=== PATIENT | male | born 2005 | race Caucasian/White ===

== ENCOUNTER 2025-09-28 10:08 | Outpatient (REF) | payer MEDICARE, SELFPAY ==
--- OUTSIDE RECORDS SUMMARY | 2025-09-28 09:00 | XMS_ITS | Encounter Summary ---
Author Organization [employer] Address [address] [place] [address] [address] [place] [address] Care Team Providers Care Asphalt Roller Person Name Role Phone Fior Gaytan Primary Care Provider [phone] Reason for Referral * Consultation (Routine) - Authorized Specialty Diagnoses / Procedures Referred By Lucia duron Referred To Contact Behavioral Health Diagnoses Attention deficit disorder with hyperactivity Anxiety Procedures Referral to Behavioral Health Fior Gaytan FNP [address] [place] [address] Phone: tel: fax: Referral ID Status Reason Start Date Expiration Date Visits Requested Visits Authorized [id number] Authorized Specialty Services Required 5 09/28/2026 1 1 Reason for Visit * Reason Comments Establish Care ADHD Autism dry hands Encounter Details Date Type Department Care Team (Latest Contact Info) Description 09/28/2025 9:00 AM EST Office Visit [facility] [address] [place] [address] Fior Gaytan FNP [address] [place] [address] Attention deficit disorder with hyperactivity (Primary Dx); Anxiety; Encounter for immunization; Healthcare maintenance; Encounter for screening for infections with a predominantly sexual mode of transmission Social History Tobacco Use Types Packs/Day Years Used Date Smoking Tobacco: Never Smokeless Tobacco: Never Tobacco Cessation:Counseling Given: Not Answered Alcohol Answer Date Recorded How often do you have a drink containing alcohol ? 0 09/28/2025 Average Number of Drinks Not on file 025 How often do you have six or more drinks on one occasion? 0 09/28/2025 Depression Answer Date Recorded Patient Health Questionnaire-9 Score 13 09/28/2025 Patient Health Questionnaire-9 Score 13 09/28/2025 Last PHQ-9: Questionnaire Data Not on file 1 11/28/2024 Housing Stability Answer Date Recorded What is your housing situation today? I have erik strong 09/28/[address] you li ve. Do you have problems with any of the following? None of the above 09/28/2025 Food Insecurity Answer Date Recorded Within the past 12 months, y ou worried that your food would run out before you got money to buy more: Never True 09/28/2025 Within the past 12 months,th e food you bought just didn't last and you didn't have enough money to get more: Never True Transportation Answer Date Recorded In the past 12 months, has l ack of transportation kept you from medical appts, meetings, work or from getting things needed for daily living? No 09/28/2025 Utilities Answer Date Recorded In the past 12 months, has t he electric, gas, oil or water company threatened to shut off services in your home? No 09/28/2025 Depression Answer Date Recorded Patient Health Questionnaire-2 Score 4 09/28/2025 Internet Access Answer Date Recorded Internet Access Q1 Yes 09/28/2025 Internet Access Q2 Not on file 09/28/2025 Sex and Gender Information Value Date Recorded Sex Assigned at Male 09/07/2022 10:35 AM EDT Legal Sex Male 10:35 AM EDT Gender Identity Male 09/07/2022 10:35 AM EDT Sexual Orientation Don't know 09/07/2022 10 :35 AM EDT documented as of this encounter Last Filed Vital Signs Vital Sign Reading Time Taken Comments Blood Pressure 126/77 09/28/2025 9:01 AM EST Pulse 79 09/28/2025 9:01 AM EST Temperature 36.5 C (97.7 F) 09/28/2025 9:01 AM EST Respiratory Rate 18 09/28/2025 9:01 AM EST Oxygen Saturation - - Inhaled Oxygen Concentration - - Weight 81.2 kg (179 lb) 09/28/2025 9:01 AM EST Height 170.2 cm (5' 7 ) 09/28/2025 9:01 AM EST Body Mass Index 28.04 09/28/2025 9:01 AM EST documented in this encounter Functional Status * Over the past 2 weeks, how often have you been bothered by any of the following problems? Question Answer Date of Assessment Author Patient Health Questionnaire -2 Score 4 09/28/2025 9:22 AM Abril Butler MA * Little interest or pleasure in doing things Answer Date of Assessment Author More than half the days 09/28/2025 9:22 AM Abril La MA * Feeling down, depressed, or hopeless Answer Date of Assessment Author More than half the days 09/28/2025 9:22 AM Abril La MA * Trouble falling or staying asleep, or sleeping too much Answer Date of Assessment Author Several days 09/28/2025 9:22 AM Fanny Butler MA * Feeling tired or having little energy Answer Date of Assessment Author More than half the days 09/28/2025 9:22 AM Abril La MA * Poor appetite or overeating Answer Date of Assessment Author Not at all 09/28/2025 9:22 AM Fanny Butler MA * Feeling bad about yourself - or that you are a failure or have let yourself or your family down Answer Date of Assessment Author Several days 09/28/2025 9:22 AM Fanny Butler MA * Trouble concentrating on things, such as reading the newspaper or watching television Answer Date of Assessment Author Nearly every day 09/28/2025 9:22 AM Leonardo Butler MA * Moving or speaking so slowly that other people could have noticed? Or the opposite - being so fidgety or restless that you have been moving around a lot more than usual. Answer Date of Assessment Author More than half the days 09/28/2025 9:22 AM Abril La MA * Thoughts that you would be better off or hurting yourself in some way Answer Date of Assessment Author Not at all 09/28/2025 9:22 AM Fanny Butler MA * Patient Health Questionnaire-9 Score Answer Date of Assessment Author 13 09/28/2025 9:22 AM Fanny Butler MA * Over the last 2 weeks, how often have you been bothered by any of the following problems? Question Answer Date of Assessment Author Feeling nervous, anxious, or on edge 2 09/28/2025 9:22 AM Abril Butler MA Not being able to stop or co ntrol worrying 1 09/28/2025 9:22 AM Abril Butler MA Worrying too much about diff erent things 1 09/28/2025 9:22 AM Abril Butler MA Trouble relaxing 2 09/28/2025 9:22 AM Abril La MA Being so restless that it is hard to sit still 1 09/28/2025 9:22 AM Abril Butler MA Becoming easily annoyed or irritable 3 09/28/2025 9:22 AM Abril Butler MA Feeling afraid as if somethi ng awful might happen 1 09/28/2025 9:22 AM Abril Butler MA ALPHONSO-7 Total Score 11 09/28/2025 9:22 AM Abril Butler MA * How difficult have these problems made it for you to do your work, take care of things at home, or get along with other people? Answer Date of Assessment Author Very difficult 09/28/2025 9:22 AM Fanny Butler MA documented as of this encounter Plan of Treatment Scheduled Orders Name Type Priority Associated Diagnoses Orde r Schedule Ferritin Lab Routine Healthcare maintenance Expected: 09/28/2025, Expires: 09/28/2026 Lipid Panel, Standard Lab Routine Healthcare maintenance Expected: 09/28/2025 (Approximate), Expires: 09/28/2026 Hemoglobin A1c Lab Routine Healthcare maintenance Expected: 09/28/2025 (Approximate), Expires: 09/28/2026 TSH with Reflex to Free T4 Lab Routine Healthcare maintenance Expected: 09/28/2025 (Approximate), Expires: 09/28/2026 Comprehensive Metabolic Panel Lab Routine Healthcare maintenance Expected: 09/28/2025 (Approximate), Expires: 09/28/2026 CBC auto differential Lab Routine Healthcare maintenance Expected: 09/28/2025, Expires: 09/28/2026 Iron And Total Iron Binding Capacity Lab Routine Healthcare maintenance Expected: 09/28/2025, Expires: 09/28/2026 Hepatitis C Viral RNA, Quantitative, Real-Time PCR Lab Routine Healthcare maintenance Expected: 09/28/2025 (Approximate), Expires: 09/28/2026 RPR (Monitor) with Reflex to Titer Lab Routine Healthcare maintenance Encounter for screening for infections with a predominantly sexual mode of transmission Expected: 09/28/2025 (Approximate), Expires: 09/28/2026 HIV-1/2 Antigen and Antibodies, Fourth Generation, with Reflexes Lab Routine Healthcare maintenance Expected: 09/28/2025 (Approximate), Expires: 09/28/2026 Chlamydia/Trichomonas/Neis seria gonorrhoeae, PCR, Urine Lab Routine Healthcare maintenance Expected: 09/28/2025 (Approximate), Expires: 09/28/2026 documented as of this encounter Visit Diagnoses Diagnosis Attention deficit disorder with hyperactivity- Primary Anxiety Anxiety state, unspecified Encounter for immunization Healthcare maintenance Encounter for screening for infections with a predominantly sexual mode of transmission documented in this encounter Additional Health Concerns Assessment Noted Time PHQ-9 Depression Total Score: 13 025 9:22 AM EST documented as of this encounter Care Teams Asphalt Roller Person Relationship Specialty Start Date End Date Fior Gaytan FNP [address] [place] [id number] PCP - General Family Medicine 09/28/25 documented as of this encounter
--- OUTSIDE RECORDS SUMMARY | 2025-09-28 10:50 | XMS_ITS | Clinical Summary ---
Author Organization [facility] Address [address] [place] [address] Phone Care Team Providers Care Intertype Operator Name Role Phone Mohit Platt MD Primary Care Provider [phone] Allergies Active Allergy Reactions Criticality Noted Date Comments Environmental 07/25/2018 Pollen Medications loratadine 10 MG tabletIndications :Acute seasonal allergic rhinitis due to pollen Take 1 tablet (10 mg total) by mouth once daily. 90 tablet 1 05/09/20 25 Active fluticasone 50 MCG/ACT nasal sprayIndications: Acute seasonal allergic rhinitis due to pollen Administer 1 spray into each nostril daily. 32 mL 3 05/09/20 25 Active sertraline 25 MG tabletIndications :Anxiety Take 1.5 tablets (37.5 mg total) by mouth daily. 45 tablet 3 06/13/20 25 Active Methylphenidate HCl ER, XR, 20 MG capsule sustained-release 24 hrIndications:Att ention deficit hyperactivity disorder (ADHD), combined type Take 1 capsule by mouth daily. 30 capsule 06/21/20 25 Active methylphenidate ER 20 MG ER tabletIndications :Attention deficit hyperactivity disorder (ADHD), combined type Take 1 tablet (20 mg total) by mouth every morning. 30 tablet 09/17/20 25 025 Active methylphenidate ER 20 MG ER tabletIndications :Attention deficit hyperactivity disorder (ADHD), combined type Take 1 tablet (20 mg total) by mouth every morning. 30 tablet 08/14/20 25 025 Discontin ued(Reord er) Active Problems Problem Noted Date Diagnosed Date Bite, insect 03/05/2025 Assessment & Plan (03/05/2025 3:26 PM EDT): These do look like some insect bites (scratching and scabbed), at the end he says it is itchy. I suggest to examine dad's house/dad's spare bed for fleas (had them before). Gave script for topical antibiotics. Will f/u prn. Anxiety 11/09/2024 Assessment & Plan (12/14/2024 9:57 AM EST): Will continue with sertraline, it seems to be working well. Still with conflicts at home. Reassurance and discussed possible therapy. Assessment & Plan (11/09/2024 10:19 AM EST): Discussed anxiety and depression. Having a lot of emotional outbursts and aggression. We will start him on sertraline/zoloft and see him back in a month. Muscle fatigue 04/14/2024 Assessment & Plan (04/14/2024 9:12 AM EDT): His exam is benign. I think this is from working out. He just needs fluids and rest. Work note given today. Intellectual disability 10/10/2018 Overview (10/10/2018): Full IQ 67 tested at 03/16/2011 Assessment & Plan (07/08/2022 4:30 PM EDT): Going to do the [employer] program till . Now new concerns. Doing well. F/u at [facility] 10/2022. Raynaud's phenomenon without gangrene 06/17/2018 Assessment & Plan (06/17/2018 5:47 PM EDT): History consistent with Raynaud's phenomenon. Discussed what this is. Return if episodes have pain or other symptom that goes along with them. Flat foot 05/25/2016 Overview (06/17/2018): Flat foot (734) Onset: 05/25/2016 Added by: Mohit Platt Assessment & Plan (04/26/2023 3:24 PM EDT): Need new scripts Attention deficit disorder with hyperactivity Overview (06/17/2018): Attention deficit hyperactivity disorder (314.01) Onset: 09/21/2011 Added by: Jacquelin Aggarwal Assessment & Plan (12/14/2024 9:58 AM EST): The switch to concerta is working well. Will continue with this. F/u in 6 months. Assessment & Plan (05/16/2024 4:41 PM EDT): Doing well with focalin 40 xr Will continue at this dose F/u at his [facility] in November Resolved Problems Problem Noted Date Diagnosed Date Resolved Date Viral gastroenteritis 12/15/20222023 Assessment & Plan (12/15/2022 12:38 PM EST): Exam is reassuring. No red flags. Consistent with viral gastroenteritis. Educated on supportive care. Follow up if symptoms persist or worsen. Gastroenteritis; Once your child has stopped getting sick for at least one hour, it is OK to start encouraging drinking slowly. Begin oral fluid replacement with a glucose and electrolyte containing solution. If you child is less than 1 year old, use Pedialyte. If your child is older than 1 year sports drinks such as Gatorade and Powerade can be used. If your child is having a lot of diarrhea sugar-free sports drinks, such as Powerade Zero, should be used instead (as things high in sugar can prolong diarrhea). Jello, popsicles and soup are other ways to replace fluid loss. Advance diet to solid foods slowly as tolerated. Stick to bland foods at first, such as plain crackers like saltines, rice or plain toast for best results. Avoid foods high in sugar if lots of diarrhea as it can make it worse. Refrain from too many fruits or vegetables (except bananas) until symptoms improve. Please call back for persistent fevers 101 or greater, increased abdominal pain, worsening vomiting/diarrhea, less than 4 wet diapers or urination daily, or for any other concern. Acute URI 12/08/2022 04/14/2024 Assessment & Plan (12/08/2022 9:38 AM EST): Exam is reassuring. No red flags. Consistent with viral URI. Continue supportive care. Call office for re-eval if symptoms persist or worsen. Influenza A 11/23/2022 04/14/2024 Encounters Date Type Department Care Team Description 09/14/2025 Refill [facility] [address] [place] [address] [place] [address] Mohit Platt MD Attention deficit hyperactivity disorder (ADHD), combined type 08/14/2025 Refill [facility] [address] [place] [address] [place] [address] Mohit Platt MD Attention deficit hyperactivity disorder (ADHD), combined type 07/13/2025 Refill [facility] [address] [place] [address] [place] [address] Mohit Paltt MD Acute seasonal allergic rhinitis due to pollen; Attention deficit hyperactivity disorder (ADHD), combined type from Last 3 Months Immunizations Immunization Administration Dates Next Due COVID-19 Pfizer, monovalent, 12+ years 1 DTaP 5 05/22/2008, 5,2003,10/02,2003 H1N1 Inj Preservative Free 12/05/2009,11/06/2009 HPV Vaccine 9 Valent 08/26/2017,08/10/2016 Hep A, ped/adol 10/13/2019,10/10/2018 Hep B, ped/adol 08/27/2004,2003,2003 Hib (PRP-T) 09/30/2005, 4,2003,08/03 IPV 05/22/2008, 5,2003,08/03 Influenza, injectable, quadr ivalent, preservative free 11/05/2023,07/08/2022,08/09/2021,07/11,08/05/2019,08/31/2018,08/12/2017 ,08/10/2016,07/25/2015 Influenza, injectable, trivalent 013,07/08/2012,06/25/2010,11/06,10/15/2008,09/26/2008 Influenza, injectable, triva lent, preservative free 11/09/2024,08/07/2014,06/25/2011 MMR 05/22/2008,05/26/2004 Meningococcal Conj (Menactra) MCV4P 10/13/2019,0 08/07/2014 Pneumococcal Conjugate 09/30/2005,2003,2003,08/03 Tdap 11/09/2024,08/07/2014 Varicella 05/22/2008,05/26/2004 Family History Medical History Relation Name Comments Diabetes Mother dulce kam Relation Name Status Comments Brother Elder Alive Father shabbir Alive Mother dulce kam Alive Social History Tobacco Use Types Packs/Day Years Used Date Smoking Tobacco: Never Smokeless Tobacco: Never Comments:Never Smoker Alcohol Use Standard Drinks/Week Comments Never 0 (1 standard drink = 0.6 oz pur e alcohol) Hunger/Food Answer Date Recorded In the last 12 months, did y ou or your family ever eat less than you felt you should because there wasn't enough money for food? No 11/07/2024 Stable Housing Answer Date Recorded Are you worried that in the next 2 months you may not have stable housing? No 11/07/2024 Transportation Concerns Answer Date Rec orded In the last 12 months, have you or your family ever had to go without healthcare because you didn't have a way to get there? No 11/07/2024 Hazards in Home Answer Date Recorded Think about the place you li ve. Do you have problems with any of the following? Pests (mice or roaches), mold, no/not working smoke detectors, water leaks, no window guards. No 2023 Financing Utilities Answer Date Recorde d In the last 12 months, has t he electric, gas, oil, or water company threatened to shut off your services in your home? No 11/07/2024 Safety at Home Answer Date Recorded Are you or your family worried about feeling saf e in your home? No 11/07/2024 Outside Support Answer Date Recorded Do you feel that you need mo re support from other people or programs to help you care for yourself or your family? Yes 11/07/2024 Understanding Health Concerns Answer Da te Recorded Do you need help understandi ng your or your child's healthcare needs (diagnosis, medications, plan, etc.)? No 11/07/2024 Financing Health Concerns Answer Date R ecorded In the last 12 months, was t here a time when your child needed to see a doctor or get medications or supplies but could not because of cost? No 11/07/2024 Missing School or Work Answer Date Aric rded Did you or your child miss s chool or work because of a health problem that could have been avoided? No 11/07/2024 Child Education Answer Date Recorded Do you have concerns about y our/your child's learning or behavior in school, preschool, or daycare? No 11/07/2024 Sex and Gender Information Value Date Recorded Sex Assigned at Not on file Legal Sex Male 6:31 PM EDT Gender Identity Not on file Sexual Orientation Not on file Last Filed Vital Signs Vital Sign Reading Time Taken Comments Blood Pressure 120/80 03/05/2025 2:59 PM EDT Pulse 84 11/05/2023 3:29 PM EST Temperature 36.6 C (97.8 F) 03/05/2025 2:59 PM EDT Respiratory Rate - - Oxygen Saturation - - Inhaled Oxygen Concentration - - Weight 87.8 kg (193 lb 9.6 oz) 03/05/2025 2:59 P M EDT Height 172 cm (5' 7.72 ) 11/09/2024 9:53 AM EST Body Mass Index 29.68 11/09/2024 9:53 AM EST Plan of Treatment Health Maintenance Due Date Last Done Comments Men B Vaccine (1 of 2 - Standard) 2019 Influenza Vaccines (#1) 2025 11/09/19, 11/05/2023, 07/08/2022, Additional history exists COVID-19 Vaccine ( - 2024-2 6 season) 2025 10/20/2021, 03/22/2021, 02/28/2021 DTaP,Tdap,and Td Vaccines (8 - Td or Tdap) 11/09/2034 11/09/2024, 08/07/2014, 05/22/2008, Additional history exists Hepatitis B Vaccines Completed 08/27/2004, 2003, 2003 HIB Vaccines Completed 09/30/2005, 11/09, 2003, Additional history exists Pneumococcal Vaccine Completed 09/30/2005, 2003, 2003, Additional history exists IPV Vaccines Completed 05/22/2008, 09/09, 2003, Additional history exists MMR Vaccines Completed 05/22/2008, 05/26/2004 Varicella Vaccines Completed 05/22/2008, 05/26/2004 HPV Vaccines Completed 08/26/2017, 08/10/2016 Hepatitis A Vaccines Completed 10/13/2019, 10/10/20 18 Meningococcal Vaccine Completed 10/13/2019, 014 Goals Goal Patient Goal Type Associated Problems Recent Progress Patient-Stated? Author Follow provider treatment plan General Louis Mendoza MD Note: Images from the original note were not included. Set regular routines for your day. Avoid overscheduling activities. Take the anxiety medication as directed. Fear Thermometer Click here to see the guide on fear thermometer for children with anxiety (https://One Month.[employer].org/One Month/Documents/SecureContent?filename=Guided Self-Management\Anxiety Guide child\3. Anxiety Guide Child - Fear Thermometer.pdf) Deep Breathing Click here to see the guide on deep breathing for children with anxiety (https://One Month.[employer].org/[employer]/Documents/SecureContent?filename=Guided Self-Management\Anxiety Guide child\4. Anxiety Guide Child - Deep Breathing.pdf) Anxiety Disorder: Care Instructions Your Care Instructions Anxiety is a normal reaction to stress. Difficult situations can cause you to have symptoms such as sweaty palms and a nervous feeling. In an anxiety disorder, the symptoms are far more severe. Constant worry, muscle tension, trouble sleeping, nausea and diarrhea, and other symptoms can make normal daily activities difficult or impossible. These symptoms may occur for no reason, and they can affect your work, school, or social life. Medicines, counseling, and self-care can all help. Follow-up care is a shi part of your treatment and safety. Be sure to make and go to all appointments, and call your doctor if you are having problems. It's also a good idea to know your test results and keep a list of the medicines you take. How can you care for yourself at home? Take medicines exactly as directed. Call your doctor if you think you are having a problem with your medicine. Go to your counseling sessions and follow-up appointments. Recognize and accept your anxiety. Then, when you are in a situation that makes you anxious, say to yourself, This is not an emergency. I feel uncomfortable, but I am not in danger. I can keep going even if I feel anxious. Be kind to your body: Relieve tension with exercise or a massage. Get enough rest. Avoid alcohol, caffeine, nicotine, and illegal drugs. They can increase your anxiety level and cause sleep problems. Learn and do relaxation techniques. See below for more about these techniques. Engage your mind. Get out and do something you enjoy. Go to a [employer] movie, or take a walk or hike. Plan your day. Having too much or too little to do can make you anxious. Keep a record of your symptoms. Discuss your fears with a good friend or family member, or join a support group for people with similar problems. Talking to others sometimes relieves stress. Get involved in social groups, or volunteer to help others. Being alone sometimes makes things seem worse than they are. Get at least 30 minutes of exercise on most days of the week to relieve stress. Walking is a good choice. You also may want to do other activities, such as running, swimming, cycling, or playing tennis or team sports. Relaxation techniques Do relaxation exercises 10 to 20 minutes a day. You can play soothing, relaxing music while you do them, if you wish. Tell others in your house that you are going to do your relaxation exercises. Ask them not to disturb you. Find a comfortable place, away from all distractions and noise. Lie down on your back, or sit with your back straight. Focus on your breathing. Make it slow and steady. Breathe in through your nose. Breathe out through either your nose or mouth. Breathe deeply, filling up the area between your navel and your rib cage. Breathe so that your belly goes up and down. Do not hold your breath. Breathe like this for 5 to 10 minutes. Notice the feeling of calmness throughout your whole body. As you continue to breathe slowly and deeply, relax by doing the following for another 5 to 10 minutes: Tighten and relax each muscle group in your body. You can begin at your toes and work your way up to your head. Imagine your muscle groups relaxing and becoming heavy. Empty your mind of all thoughts. Let yourself relax more and more deeply. Become aware of the state of calmness that surrounds you. When your relaxation time is over, you can bring yourself back to alertness by moving your fingers and toes and then your hands and feet and then stretching and moving your entire body. Sometimes people fall asleep during relaxation, but they usually wake up shortly afterward. Always give yourself time to return to full alertness before you drive a car or do anything that might cause an accident if you are not fully alert. Never play a relaxation tape while you drive a car. When should you call for help? Call 911 anytime you think you may need emergency care. For example, call if: You feel you cannot stop from hurting yourself or someone else. Keep the numbers for these national suicide hotlines: 0-455-341-TALK ( ) and 3-698-XXBKAOX ( ). If you or someone you know talks about suicide or feeling hopeless, get help right away. Watch closely for changes in your health, and be sure to contact your doctor if: You have anxiety or fear that affects your life. You have symptoms of anxiety that are new or different from those you had before. Where can you learn more? Go to https://www.Twitch.net/patientEd Enter P754 in the search box to learn more about Anxiety Disorder: Care Instructions. Current as of: April 23, 2021 Content Version: 13.0 [employer]. Care instructions adapted under license by your healthcare professional. If you have questions about a medical condition or this instruction, always ask your healthcare professional. [employer] disclaims any warranty or liability for your use of this information. Patient/Parent would like to manage anxiety better Care Plan Patient is having increased feelings of anxiety Louis Mendoza MD Note: Patient would like to get through the day without emotional outbursts. Additional Health Concerns Active Problems Noted Date Diagnosed Date Patient/family needs help romario naging the patient s chronic conditions 06/18/2021 Patient/caregiver is having difficulty managing multiple needs 06/18/2021 Patient is having increased feelings of anxiety 11/12/2024 Care Teams Intertype Operator Relationship Specialty Start Date End Date Mohit Platt MD [facility] [place] [address] PCP - General Pediatrics 06/22/25
--- OUTSIDE RECORDS SUMMARY | 2025-09-28 10:50 | XMS_ITS | Encounter Summary ---
Author Organization [facility] Address [address] [place] [address] Phone Care Team Providers Care Water Filterer Name Role Phone Mohit Platt MD Primary Care Provider [phone] Reason for Visit * Reason Onset Date Comments Med Refill 10/20/2024 Encounter Details Date Type Department Care Team ([facility] Contact Info) Description 10/20/2024 Refill [facility] [address] [place] [address] [place] [address] Jac[address]elin [address] [place] [address] Social History Tobacco Use Types Packs/Day Years [...] there wasn't enough money for food? No 11/05/2023 Stable Housing Answer Date Recorded Are you worried that in the next 2 months you may not have stable housing? No 11/05/2023 Transportation Concerns Answer Date Rec orded In the last 12 months, have you or your family ever had to go without healthcare because you didn't have a way to get there? Yes 11/05/2023 Hazards in Home Answer Date Recorded Think about the place you li ve. Do you have problems with any of the following? Pests (mice or roaches), mold, no/not working smoke detectors, water leaks, no window guards. No 2022 Financing Utilities Answer Date Recorde d In the last 12 months, has t he electric, gas, oil, or water company threatened to shut off your services in your home? No 11/05/2023 Safety at Home Answer Date Recorded Are you or your family worried about feeling saf e in your home? No 11/05/2023 Outside Support Answer Date Recorded Do you feel that you need mo re support from other people or programs to help you care for yourself or your family? Yes 11/05/2023 Understanding Health Concerns Answer Da te Recorded Do you need help understandi ng your or your child's healthcare needs (diagnosis, medications, plan, etc.)? No 11/05/2023 Financing Health Concerns Answer Date R ecorded In the last 12 months, was t here a time when your child needed to see a doctor or get medications or supplies but could not because of cost? No 11/05/2023 Missing School or Work Answer Date Aric rded Did you or your child miss s chool or work because of a health problem that could have been avoided? No 11/05/2023 Sex and Gender Information Value Date Recorded Sex Assigned at Not on file Legal Sex Male 6:31 PM EDT Gender Identity Not on file Sexual Orientation Not on file documented as of this encounter Plan of Treatment Not on file documented as of this encounter Visit Diagnoses Not on filedocumented in this encounter Additional Health Concerns Active Problems Noted Date Diagnosed Date Patient/family needs help ma naging the patient s chronic conditions 06/18/2021 Patient/caregiver is having difficulty managing multiple needs 06/18/2021 documented as of this encounter Care Teams Water Filterer Relationship Specialty Start Date End Date Mohit Platt MD [facility] [facility] [place] [address] PCP - General Pediatrics 06/22/25 documented as of this encounter
--- OUTSIDE RECORDS SUMMARY | 2025-09-28 10:50 | XMS_ITS | Encounter Summary ---
Author Organization [employer] Address [address] [facility] [address] [place] [address] Care Team Providers Care Drug Room Clerk Name Role Phone Fior Gaytan Primary Care Provider [phone] Encounter Details Date Type Department Care Team (Latest Contact Info) Description 01/04/2019 Abstract [facility] CONVERSIONS Dental, Provider, DDS Social History Tobacco Use Types Packs/Day Years Used Date Smoking Tobacco: Never Assessed Sex and Gender Information Value Date Recorded Sex Assigned at Male 09/07/2022 10:35 AM EDT Legal Sex Male 10:35 AM EDT Gender Identity Male 09/07/2022 10:35 AM EDT Sexual Orientation Don't know 09/07/2022 10 :35 AM EDT documented as of this encounter Plan of Treatment Not on file documented as of this encounter Visit Diagnoses Not on filedocumented in this encounter Care Teams Drug Room Clerk Relationship Specialty Start Date End Date Fior Gaytan FNP [address] [place] [address] PCP - General Family Medicine 09/28/25 documented as of this encounter
--- OUTSIDE RECORDS SUMMARY | 2025-09-28 10:50 | XMS_ITS | Encounter Summary ---
Author Organization [facility] Address [address] [place] [address] Phone Care Team Providers Care Test Deskman Name Role Phone Mohit Platt MD Primary Care Provider [phone] Encounter Details Date Type Department Care Team (Late st Contact Info) Description 04/17/2011 Conversion Encounter [facility] [address] [place] [address] [place] [address] Social History Tobacco Use Types Packs/Day Years [...] on filedocumented in this encounter Care Teams Test Deskman Relationship Specialty Start Date End Date Mohit Platt MD [address] [facility] [place] [address] PCP - General Pediatrics 06/22/25 documented as of this encounter
--- OUTSIDE RECORDS SUMMARY | 2025-09-28 10:50 | XMS_ITS ---
Care Plan Created on: September 28, 2025 Prasanth Greer : 2005 Sex: Male Author Organization [facility] Address [address] [place] [id number] Phone Care Team Providers Care Central Office Mechanic Name Role Phone Mohit Platt MD Primary Care Provider [phone] Active Problems Problem Noted Date Diagnosed Date [...] 4:30 PM EDT): Going to do the [employer] program till 22. Now new concerns. Doing well. F/u at [facility] 10/2022. Raynaud's phenomenon without gangrene 06/17/2018 Assessment [...] persist or worsen. Influenza A 11/23/2022 04/14/2024 Additional Health Concerns Active Problems Noted Date Diagnosed Date Patient/family needs help ma naging the patient s chronic conditions 06/18/2021 Patient/caregiver is having difficulty managing multiple needs 06/18/2021 Patient is having increased feelings of anxiety 11/12/2024 Goals Goal Patient Goal Type Associated Problems Recent Progress Patient-Stated? Author Follow provider treatment plan General No Louis Escalona MD Note: Images from the original note were not included. Set regular routines for your day. Avoid overscheduling activities. Take the anxiety medication as directed. Fear Thermometer Click here to see the guide on fear thermometer for children with anxiety (https://LoiLohart.NOWBOX.org/LoiLohart/Documents/SecureContent?filename=Guided Self-Management\Anxiety Guide child\3. Anxiety Guide Child - Fear Thermometer.pdf) Deep Breathing Click here to see the guide on deep breathing for children with anxiety (https://Neverfailt.NOWBOX.org/Neverfailt/Documents/SecureContent?filename=Guided Self-Management\Anxiety Guide child\4. Anxiety Guide Child - [...] do something you enjoy. Go to a funny movie, or take a walk or hike. [...] the numbers for these national suicide hotlines: 1-533-432-TALK ( ) and 8-156-DQUQWJI ( ). If you or someone you [...] Where can you learn more? Go to https://www.GOSO.net/patientEd Enter P754 in the search box to learn more about Anxiety Disorder: Care Instructions. Current as of: April 23, 2021 Content Version: 13.0 [employer]. Care instructions adapted under license by your healthcare professional. If you have questions about a medical condition or this instruction, always ask your healthcare professional. [employer] disclaims any warranty or liability for your use of this information. Patient/Parent would like to manage anxiety better Care Plan Patient is having increased feelings of anxiety Louis Mendoza MD Note: Patient would like to get through the day without emotional outbursts. Interventions Care Plan Interventions Intervention Entry Date Outcome Educate patient/caregiver 11/12/2024 Note:[id number] provider discussed the anxiety diagnosis and management in office. It can take a number of weeks for a new dose of this medication to make a noticeable change in anxiety. Related Goals and Interventions Goal Associated Intervent ions Patient/Parent would like to manage anxi ety better Educate patient/caregiver
--- OUTSIDE RECORDS SUMMARY | 2025-09-28 10:50 | XMS_ITS | Encounter Summary ---
Author Organization [employer] Address [address] [facility] [address] [place] [address] Care Team Providers Care General Ophthalmologist Name Role Phone Fior Gaytan CRISTIAN Primary Care Provider [phone] Encounter Details Date Type Department Care Team (Latest Contact Info) Description 09/28/2025 Travel Social History Tobacco Use Types Packs/Day Years Used Date Smoking Tobacco: Never Smokeless Tobacco: Never Alcohol Answer Date Recorded How often do [...] your housing situation today? I have erik ligia 09/28/[address] you li [...] AM EDT documented as of this encounter Functional Status * Over the [...] filedocumented in this encounter Additional Health Concerns Assessment Noted Time PHQ-9 Depression Total Score: 13 025 9:22 AM EST documented as of this encounter Care Teams General Ophthalmologist Relationship Specialty Start Date End Date Fior Gaytan FNP [address] [place] [address] PCP - General Family Medicine 09/28/25 documented as of this encounter
--- OUTSIDE RECORDS SUMMARY | 2025-09-28 10:51 | XMS_ITS | Clinical Summary ---
Author Organization [employer] Address [address] [place] [address] [address] [place] [address] Care Team Providers Care Commercial Kitchen Service Technician Name Role Phone Fior Gaytan CRISTIAN Primary Care Provider [phone] Allergies Active Allergy Reactions Criticality Noted Date Comments Other 07/25/2018 Pollen Medications loratadine (Claritin) 10 MG tablet Take 1 tablet by mouth Once per day. Active Methylphenidate HCl (methylphenidate ER) 36 MG 24 hr tabletIndication s:Attention deficit disorder with hyperactivity Take 1 tablet (36 mg) by mouth Once per day. Do not crush, chew, or split. 30 tablet 025 2024 Active triamcinolone (Kenalog) 0.1 % cream Mix 80g tube of Triamcinolone 0.1% cream with 16oz jar of CeraVe cream. Apply 1-2 times per day after shower or bath from the neck down (not on face) 80 g 1 09/28/20 25 10:46 AM EST 025 Active sertraline (Zoloft) 50 MG tablet Take 1 tablet (50 mg) by mouth Once per day. 90 tablet 09/28/20 25 10:46 AM EST 025 2025 Active fluticasone (Flonase) 50 MCG/ACT nasal spray Administer 1 spray into each nostril if needed each day for rhinitis or allergies. Shake gently. Before first use, prime pump. After use, clean tip and replace cap. 16 g 1 025 Active fluticasone (Flonase) 50 MCG/ACT nasal spray spray 1 spray into each nostril every day 2024 Discontinued(R eorder (will not trigger notification to Pharmacy)) methylphenidate ER (Metadate ER) 20 MG CR tablet Take 20 mg by mouth in the morning. 025 2024 Discontinued sertraline (Zoloft) 25 MG tablet 025 2024 Discontinued(R eorder (will not trigger notification to Pharmacy)) sertraline (Zoloft) 25 MG tablet Take 1.5 tablets (37.5 mg) by mouth Once per day. Take at 6pm. 135 tablet 025 2024 Discontinued Active Problems Problem Noted Date Diagnosed Date Bite, insect 03/05/2025 Anxiety 11/09/2024 Muscle fatigue 04/14/2024 Intellectual disability 10/10/2018 Overview (09/28/2025): Full IQ 67 tested at 03/16/2011 Raynaud's phenomenon without gangrene 06/17/2018 Flat foot 05/25/2016 Overview (09/28/2025): Flat foot (734) Onset: 05/25/2016 Added by: Mohit Platt Attention deficit disorder with hyperactivity Overview (09/28/2025): Attention deficit hyperactivity disorder (314.01) Onset: 09/21/2011 Added by: Jacquelin Aggarwal Encounters Date Type Department Care Team Description 09/28/2025 9:00 AM EST Office Visit [facility] [address] [place] [address] Fior Gaytan FNP Attention deficit disorder with hyperactivity (Primary Dx); Anxiety; Encounter for immunization; Healthcare maintenance; Encounter for screening for infections with a predominantly sexual mode of transmission 09/28/2025 Travel 09/21/2025 Patient Outreach [facility] [address] [place] [address] Linden Huff MD Pre-visit Planning (Pre visit planning LVM ) from Last 3 Months Immunizations Immunization Administration Dates Next Due DTaP, 5 pertussis antigens 05/22/2008,,2003,10/02,2003 HPV 9-Valent 08/26/2017,08/10/2016 Hep A, ped/adol, 2 dose 10/13/2019,10/10/2018 Hep B, Adolescent or Pediatric 08/27/2004,2003,2003 Hib (PRP-T) 09/30/2005, 4,2003,08/03 IPV 05/22/2008, 5,2003,08/03 Influenza injectable quadriv alent preservative free 11/05/2023,07/08/2022,08/09/2021,07/11,08/05/2019,08/31/2018,08/12/2017 ,08/10/2016,07/25/2015 Influenza, IIV3, injectable 07/14/2013,0 07/08/2012,06/25/2010,11/06,10/15/2008,09/26/2008 Influenza, seasonal, injecta ble, preservative free 09/28/2025,11/09/2024,08/07/2014,06/25 MMR 05/22/2008,05/26/2004 Meningococcal MCV4P [id number] 10/13/2019,08/07/20 14 Novel [id number], preservative-free 12/05/2009,11/06/2009 Pfizer Covid-19 Vaccine 12+ 09/28/2025 Pneumococcal Conjugate PCV 7 09/30/2005, 2003,2003,08/03 Tdap 11/09/2024,08/07/2014 Varicella 05/22/2008,05/26/2004 Family History Medical History Relation Name Comments Diabetes Mother Heart attack Mother Cancer Paternal Grandfather Breast cancer Paternal Grandmother Diabetes Sister Relation Name Status Comments Mother Paternal Grandfather Paternal Grandmother Sister Social History Tobacco Use Types Packs/Day Years [...] Don't know 09/07/2022 10 :35 AM EDT Last Filed Vital Signs Vital Sign Reading [...] Mass Index 28.04 09/28/2025 9:01 AM EST Plan of Treatment Health Maintenance Due Date Last Done Comments Chlamydia and Gonorrhea Screening 2003 HIV Screening 2003 Family Planning (PISQ) 2018 Meningococcal B Vaccine (1 of 2 - Standard) 2019 Hepatitis C Screening 2021 Depression Monitoring 03/28/2026 09/28/2025, 025 Alcohol/Substance Use Screening 09/28/2026 09/28/2025 Disability Screening 09/28/2026 09/28/2025 SDOH Screening 09/28/2026 09/28/2025 Tobacco Screening 09/28/2026 09/28/2025 DTaP/Tdap/Td Vaccines (8 - Td or Tdap) 11/09/2034 11/09/2024, 08/07/2014, 05/22/2008, Additional history exists Zoster Vaccines (1 of 2) 2053 RSV Patients and Patients Aged 60 years or older (1 - 1-dose 75+ series) 2078 Hepatitis B Vaccines Completed 08/27/2004, 2003, 2003 HIB Vaccines Completed 09/30/2005, 11/09, 2003, Additional history exists Pneumococcal Vaccine: Pediatrics (0 to 5 Years) and At-Risk Patients (6 to 49) Years Aged Out 09/30/2005, 2003, 2003, Additional history exists No longer eligible based on patient's age to complete this topic IPV Vaccines Completed 05/22/2008, 09/09, 2003, Additional history exists HPV Vaccines Completed 08/26/2017, 08/10/2016 Hepatitis A Vaccines Completed 10/13/2019, 10/10/20 18 Meningococcal Vaccine Completed 10/13/2019, 014 COVID-19 Vaccine Completed 09/28/2025, , 03/22/2021, Additional history exists Influenza Vaccine Completed 09/28/2025, , 11/05/2023, Additional history exists RSV under 20 months Aged Out No longe r eligible based on patient's age to complete this topic Rotavirus Vaccines Aged Out No longer eligible based on patient's age to complete this topic Insurance [facility] [employer] MEDICARE Care Teams Commercial Kitchen Service Technician Relationship Specialty Start Date End Date Fior Gaytan FNP [address] [place] [id number] PCP - General Family Medicine 09/28/25
[2025-09-28 14:23] LABS: MANUAL DIFF FLAG NO
[2025-09-28 14:51] LABS: Hematocrit 44.3 % (42.0-52.0); Hemoglobin 15.0 g/dl (14.0-18.0); Imm Gran Abs Auto 0.02 X10*3/uL (0.00-0.03); Imm Gran Pct Auto 0.3 % (0.0-0.4); Lymphocytes Absolute Auto 2.1 X10*3/uL (1.2-4.9); Mean Corpuscular HGB Conc 33.9 g/dl (31.0-36.0); Mean Corpuscular Hemoglobin 29.5 pg (27.0-33.0); Mean Corpuscular Volume 87.2 fL (80.0-98.0); NRBC Abs Auto 0.000 X10*3/uL (0.0-0.012); NRBC Pct Auto 0.0 /100WBC (0.0-0.2); Platelet Count 359 X10*3/uL (160-400); Red Blood Count 5.08 X10*6/uL (4.60-5.80); White Blood Count 6.5 X10*3/uL (4.8-10.8)
[2025-09-28 15:05] LABS: Alanine Aminotransferase 32 U/L (0-40); Albumin Level 5.0 g/dL (3.5-5.0); Alkaline Phosphatase 100 U/L (39-117); Anion Gap 10 (12-20); Aspartate Amino Transferase 38 U/L (5-37); Blood Urea Nitrogen 10 mg/dL (9-16); Calcium 9.8 mg/dL (8.4-10.2); Carbon Dioxide 29 mmol/L (22-29); Chloride 105 mmol/L (96-108); Cholesterol 163 mg/dL (<200); Estimated Glomerular Filt Rate > 60; HDL Cholesterol 35 mg/dL (>40); Iron 118 mcg/dL (45-160); Percent Iron Saturation 42 % (15-50); Potassium 3.8 mmol/L (3.3-5.1); Sodium 140 mmol/L (135-145); Total Iron Binding Capacity 278 mcg/dL (228-428); Total Protein 8.0 g/dL (6.5-8.0); Triglycerides 77 mg/dL (<150); Unsaturated Iron Binding 160 ug/dL
[2025-09-28 15:23] LABS: Ferritin 155 ng/mL (20-250)
[2025-09-28 15:50] LABS: CT PCR Urine NOT DETECTED (Not Detect.); NG PCR Urine NOT DETECTED (Not Detect.)
[2025-09-29 08:56] LABS: HIV Num 1 0.06 S/CO (0.00-0.99)
[2025-10-01 08:13] LABS: HCV Log PCR <1.18 NOT DETECTED Log IU/mL (NOT DETECTED); HepC Viral Load <15 NOT DETECTED IU/mL (NOT DETECTED)
== END 2025-09-28 10:09 | disposition home or self-care (01) ==
LOC: HO.CHCLDS 10:08
PROVIDERS: Visit Provider Registered Nurse
DX: Z00.00 Encounter for general adult medical examination without abnormal findings (principal); Z11.4 Encounter for screening for human immunodeficiency virus [HIV]; Z20.2 Contact with and (suspected) exposure to infections with a predominantly sexual mode of transmission; Z13.29 Encounter for screening for other suspected endocrine disorder; Z13.1 Encounter for screening for diabetes mellitus; Z13.6 Encounter for screening for cardiovascular disorders
CPT/HCPCS: 36415; 80053; 80061; 82728; 83036; 83540; 84443; 85025; 86592; 87389; 87491; 87522; 87591